=== PATIENT | male | born 1985 | race Caucasian/White ===

== ENCOUNTER 2021-03-05 06:20 | Emergency (ER) | payer SELFPAY ==
[2021-03-05] MEDS ORDERED: LIDOCAINE 1% W/EPI 1:100,000 MDV 50 ML VIAL ONE (07:05)
--- NOTE | 2021-03-05 07:05 | ER ---
Nurse's Notes [facility] Name: Gregory Richter Age: 35 yrs Sex: Male : 1985 Arrival Date: 03/05/2021 Time: 06:23 Bed 16 Private MD: Diagnosis: Cutaneous abscess of perineum-SPONTANEOUS DRAINAGE Presentation: 03/05 06:29 Chief complaint: Patient states: abscess on the right side of butt cheek that been em there for 4 days, denies fever or drainage. Coronavirus screen: Client denies travel out of the [place] in the last 14 days. Ebola Screen: Patient negative for fever greater than or equal to 101.5 degrees Fahrenheit, and additional compatible Ebola Virus Disease symptoms Patient denies exposure to infectious person. Patient denies travel to an Ebola-affected area in the 21 days before illness onset. No symptoms or risks identified at this time. Initial Sepsis Screen: Does the patient meet any 2 criteria? No. Patient's initial sepsis screen is negative. Does the patient have a suspected source of infection? No. Patient's initial sepsis screen is negative. Risk Assessment: Do you want to hurt yourself or someone else? Patient reports no desire to harm self or others. Onset of symptoms was March 05, 2021. 06:29 Method Of Arrival: Ambulatory em 06:29 Acuity: JANIE 3 em Triage Assessment: 06:32 General: Appears in no apparent distress. Behavior is calm, cooperative. Pain: ak2 Complains of pain in buttocks and pelvis. Historical: - Allergies: 06:30 No Known Allergies; em - PMHx: 06:30 None; em - PSHx: 06:30 None; em - Immunization history:: Adult Immunizations up to date. - Social history:: Smoking status: Patient reports the use of cigarette tobacco products, smokes one-half pack cigarettes per day. - Family history:: not pertinent. Screenin:33 Abuse screen: Denies threats or abuse. Denies injuries from another. Nutritional ak2 screening: No deficits noted. Tuberculosis screening: No symptoms or risk factors identified. Fall Risk None identified. Assessment: 06:32 General: Appears in no apparent distress. Behavior is calm, cooperative. Neuro: No ak2 deficits noted. Cardiovascular: No deficits noted. Respiratory: No deficits noted. Vital Signs: 06:29 BP 126 / 71; Pulse 68; Resp 18; Temp 98.4(O); Pulse Ox 99% on R/A; Weight 81.65 kg; em Height 6 ft. 0 in. (182.88 cm); Pain 5/10; 06:29 Body Mass Index 24.41 (81.65 kg, 182.88 cm) em ED Course: 06:23 Patient arrived in ED. bp1 06:30 Triage completed. em 06:30 Arm band placed on. em 06:32 Baljit Emmanuel is Primary Nurse. ak2 06:33 Patient has correct armband on for positive identification. ak2 06:33 No provider procedures requiring assistance completed. Patient did not have IV access ak2 during this emergency room visit. 06:34 Neo Covington MD is Attending Physician. [facility] 07:03 Remington Laguerre MD is Referral Physician. ferny Administered Medications: 07:05 Drug: Cipro (ciprofloxacin) 500 mg Route: PO; ak2 07:05 Drug: Bactrim (trimethoprim-sulfamethoxazole) (160 mg-800 mg (DS) 1 tablet Route: PO; ak2 07:05 Drug: Motrin (ibuprofen) 800 mg Route: PO; ak2 Outcome: 07:04 Discharge ordered by . [facility] 07:12 Discharged to home ambulatory. ak2 07:12 Condition: good 07:12 Discharge instructions given to patient, Prescriptions given X 07:12 Patient left the ED. ak2 Signatures: Neo Covington MD MD cha Munoz, Edgar, RN RN Inez Hernandez [facility] Baljit Emmanuel ak2
--- NOTE | 2021-03-05 07:05 | EDPHYS ---
Physician Documentation [facility] Name: Gregory Richter Age: 35 yrs Sex: Male : 1985 Arrival Date: 03/05/2021 Time: 06:23 Bed 16 Private MD: ADRIANA Physician Neo Cvoington HPI: 03/05 06:56 This 35 yrs old Male presents to ER via Ambulatory with complaints of Abscess.ferny 06:56 The patient presents with an abscess of the perineum and anus, The patient presents ferny with cellulitis of the , the patient presents with a swollen area of the perineum and anus. Description: The affected area is moderate sized, confluent, draining, erythematous, fluctuant. Onset: The symptoms/episode began/occurred 3 day(s) ago. Possible cause(s): unknown. Associated signs and symptoms: The patient has no apparent associated signs or symptoms. Modifying factors: the symptoms are alleviated by nothing, the symptoms are aggravated by movement, walking, pressure, sitting, squeezing the lesion and expressing the contents. Severity of symptoms: At their worst the symptoms were mild, moderate, in the emergency department the symptoms are unchanged. The patient has not experienced similar symptoms in the past. Historical: - Allergies: 06:30 No Known Allergies; em - PMHx: 06:30 None; em - PSHx: 06:30 None; em - Immunization history:: Adult Immunizations up to date. - Social history:: Smoking status: Patient reports the use of cigarette tobacco products, smokes one-half pack cigarettes per day. - Family history:: not pertinent. ROS: 06:56 Constitutional: Negative for fever, chills, and weight loss, Eyes: Negative for injury, ferny pain, redness, and discharge, ENT: Negative for injury, pain, and discharge, Neck: Negative for injury, pain, and swelling, Cardiovascular: Negative for chest pain, palpitations, and edema, Respiratory: Negative for shortness of breath, cough, wheezing, and pleuritic chest pain, Abdomen/GI: Negative for abdominal pain, nausea, vomiting, diarrhea, and constipation, Back: Negative for injury and pain, : Negative for injury, bleeding, discharge, and swelling, MS/Extremity: Negative for injury and deformity, Neuro: Negative for headache, weakness, numbness, tingling, and seizure, Psych: Negative for depression, anxiety, suicide ideation, homicidal ideation, and hallucinations, Allergy/Immunology: Negative for hives, rash, and allergies, Endocrine: Negative for neck swelling, polydipsia, polyuria, polyphagia, and marked weight changes, Hematologic/Lymphatic: Negative for swollen nodes, abnormal bleeding, and unusual bruising. 06:56 Skin: Positive for erythema, swelling, of the perineum and anus. Exam: 06:56 Constitutional: This is a well developed, well nourished patient who is awake, alert, ferny and in no acute distress. Head/Face: Normocephalic, atraumatic. Eyes: Pupils equal round and reactive to light, extra-ocular motions intact. Lids and lashes normal. Conjunctiva and sclera are non-icteric and not injected. Cornea within normal limits. Periorbital areas with no swelling, redness, or edema. ENT: Nares patent. No nasal discharge, no septal abnormalities noted. Tympanic membranes are normal and external auditory canals are clear. Oropharynx with no redness, swelling, or masses, exudates, or evidence of obstruction, uvula midline. Mucous membranes moist. Neck: Trachea midline, no thyromegaly or masses palpated, and no cervical lymphadenopathy. Supple, full range of motion without nuchal rigidity, or vertebral point tenderness. No Meningismus. Chest/axilla: Normal chest wall appearance and motion. Nontender with no deformity. No lesions are appreciated. Cardiovascular: Regular rate and rhythm with a normal S1 and S2. No gallops, murmurs, or rubs. Normal PMI, no JVD. No pulse deficits. Respiratory: Lungs have equal breath sounds bilaterally, clear to auscultation and percussion. No rales, rhonchi or wheezes noted. No increased work of breathing, no retractions or nasal flaring. Abdomen/GI: Soft, non-tender, with normal bowel sounds. No distension or tympany. No guarding or rebound. No evidence of tenderness throughout. Back: No spinal tenderness. No costovertebral tenderness. Full range of motion. Male : Normal genitalia with no discharge or lesions. Neuro: Awake and alert, GCS 15, oriented to person, place, time, and situation. Cranial nerves II-XII grossly intact. Motor strength 5/5 in all extremities. Sensory grossly intact. Cerebellar exam normal. Normal gait. Psych: Awake, alert, with orientation to person, place and time. Behavior, mood, and affect are within normal limits. 06:56 Skin: abscess, that is moderate sized, of the perineum and anus, with drainage, cellulitis, that is minimal, induration, that is mild is noted. Vital Signs: 06:29 BP 126 / 71; Pulse 68; Resp 18; Temp 98.4(O); Pulse Ox 99% on R/A; Weight 81.65 kg; em Height 6 ft. 0 in. (182.88 cm); Pain 5/10; 06:29 Body Mass Index 24.41 (81.65 kg, 182.88 cm) em MDM: 06:34 Patient medically screened. ferny 06:56 Differential diagnosis: abscess, cellulitis. Data reviewed: vital signs, nurses notes. ferny Data interpreted: engine monitor: not applicable for this patient encounter. rate is 68 beats/min. Counseling: I had a detailed discussion with the patient and/or guardian regarding: the historical points, exam findings, and any diagnostic results supporting the discharge/admit diagnosis, the need for outpatient follow up, for definitive care, a general surgeon. Administered Medications: 07:05 Drug: Cipro (ciprofloxacin) 500 mg Route: PO; ak2 07:05 Drug: Bactrim (trimethoprim-sulfamethoxazole) (160 mg-800 mg (DS) 1 tablet Route: PO; ak2 07:05 Drug: Motrin (ibuprofen) 800 mg Route: PO; ak2 Disposition Summary: 03/05/21 07:04 Discharge Ordered Location: Home ferny Problem: new ferny Symptoms: have improved ferny Condition: Stable ferny Diagnosis - Cutaneous abscess of perineum - SPONTANEOUS DRAINAGE ferny Followup: ferny - With: Private Physician - When: 2 - 3 days - Reason: Recheck today's complaints, Continuance of care, Re-evaluation by your physician Followup: ferny - With: Remington Laguerre MD - When: 2 - 3 days - Reason: Recheck today's complaints, Re-evaluation by your physician Discharge Instructions: - Discharge Summary Sheet ferny - Skin Abscess ferny - Cellulitis, Adult ferny - Skin Abscess, [id number] ferny - Cellulitis, Adult, [id number] ferny Forms: - Medication Reconciliation Form ferny - Thank You Letter ferny - Antibiotic Education ferny - Prescription Opioid Use ferny Prescriptions: - Cipro 500 mg Oral Tablet - take 1 tablet by ORAL route every 12 hours for 10 days; 20 tablet; Refills: 0, [facility] Product Selection Permitted - Ibuprofen 600 mg Oral Tablet - take 1 tablet by ORAL route every 6 hours As needed take with food; 30 tablet; [facility] Refills: 0, Product Selection Permitted - Bactrim DS 800-160 mg Oral Tablet - take 1 tablet by ORAL route every 12 hours for 10 days; 20 tablet; Refills: 0, [facility] Product Selection Permitted Signatures: Neo Covington MD MD cha Munoz, Edgar, RN RN Baljit Vitale
[2021-03-05 07:19] VITALS: BP 126/71; TEMP 98.4; O2SAT 99
[2021-03-05] MEDS ORDERED: CIPROFLOXACIN HCL 500 MG TAB ONE (07:26)
[2021-03-05] MEDS ORDERED: SMZ./TMP. 800/160 MG TABLET ONE (07:26)
[2021-03-05] MEDS ORDERED: IBUPROFEN 400 MG TAB ONE (07:26)
== END 2021-03-05 07:12 | disposition home or self-care (01) ==
LOC: ER 06:20
DX: L02.215 Cutaneous abscess of perineum (principal); L03.315 Cellulitis of perineum; F17.210 Nicotine dependence, cigarettes, uncomplicated
CPT/HCPCS: 99283